=== PATIENT | male | born 1995 | race Caucasian/White ===

== ENCOUNTER → 2017-07-11 | Outpatient (REF) | payer OTHER ==
[2017-07-11 19:25] LABS: PLATELET COUNT, AUTOMATED 179 K/uL (150-450)
== END ==
LOC: ZZSTITCHES 19:07
PROVIDERS: ATTEND Physician Assistant
DX: R06.02 Shortness of breath (principal); R07.9 Chest pain, unspecified; R42 Dizziness and giddiness
CPT/HCPCS: 82040; 82247; 82310; 82374; 82435; 82565; 82947; 84075; 84132; 84155; 84295; 84450; 84460; 84520; 85025; 85379

== ENCOUNTER 2018-09-30 15:35 | Emergency (ER) | payer OTHER ==
--- NOTE | 2018-09-30 16:01 | ER Report ---
History and Physical Time Seen By MD: 16:00 Hx. of Stated Complaint: chest pain HPI/ROS CHIEF COMPLAINT: Chest pain HISTORY OF PRESENT ILLNESS: This is a 23-year-old male presents to the emergency department for chest pain. Patient states over the last 2-3 months he's had increased fatigue, with some increased chest congestion over the last couple of weeks, he states he can also feel his pulse in his neck when he lays back. This been having difficulty sleeping. He also states that today he had left anterior chest pain that caused concern decided come in for an evaluation. No fevers or chills. 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 Increased risk for PE. No nausea or vomiting. No diaphoresis. No visual changes, no rashes. History of asthma as a child. REVIEW OF SYSTEMS: Constitutional: No fever, no chills. Eyes: No discharge. ENT: No sore throat. Cardiovascular: As above. Respiratory: As above. Gastrointestinal: No abdominal pain, no vomiting. Genitourinary: No hematuria. Musculoskeletal: No back pain. Skin: No rashes. Neurological: No headache. Allergies: Coded Allergies: No Known Drug Allergies (Unverified , 09/30/18) Home Meds Active Scripts Albuterol Sulfate 90 Mcg/Act (PROAIR HFA 90 MCG/ACT) 8.5 Gm Hfa.aer.ad, 1-2 PUFF IH 3-4XD, #1 INHALER 0 Refills Prov:AIDEN BURRIS FORMING OPERATOR- 09/30/18 Azithromycin 250 Mg Tab (AZITHROMYCIN 250 MG TAB) 250 Mg Tablet, 1 TAB PO QDAY, #4 TAB 1 tab a day until gone. Prov:AIDEN BURRIS [facility]- 09/30/18 Past Medical/Surgical History The patient has a past medical and surgical history of asthma as a child. Reviewed Nurses Notes: Yes Constitutional Vital Sign - Last 24 Hours 09/30/18 09/30/18 09/30/18 09/30/18 15:41 16:00 16:55 16:55 Temp 98.0 Pulse 81 75 67 Resp 16 20 16 B/P (MAP) 142/89 131/72 (91) Pulse Ox 91 92 92 O2 Delivery Room Air Room Air 09/30/18 09/30/18 09/30/1819 17:00 17:08 17:30 18:00 Pulse 71 65 79 73 Resp 31 16 19 18 B/P (MAP) 138/68 (91) 135/68 (90) 117/80 (92) Pulse Ox 86 91 90 09/30/18 18:30 Pulse 67 Resp 16 B/P (MAP) 128/75 (92) Pulse Ox 91 Physical Exam General Appearance: The patient is alert, has no immediate need for airway protection and no signs of toxicity. Eyes: Pupils equal and round no pallor or injection. ENT, Mouth: Mucous membranes are moist. Respiratory: Diminished in bilateral bases with coarse lung sounds in the right lower base. No wheezing or any other adventitious lung sounds. Cardiovascular: Regular rate and rhythm, no murmurs, clicks or rubs. Gastrointestinal: Abdomen is soft and non tender, no masses, bowel sounds normal. Neurological: Alert and oriented 4. Moving all extremities. Following all commands. No focal neuro deficits. Skin: Warm and dry, no rashes. Musculoskeletal: Neck is supple non tender. Extremities are nontender, nonswollen and have full range of motion. DIFFERENTIAL DIAGNOSIS: After history and physical exam differential diagnosis was considered for chest pain including but not limited to myocardial ischemia, pericarditis pulmonary embolus, chest wall pain, pleural inflammation and pulmonary infectious causes. Medical Decision Making Data Points Result Diagram: 09/30/18 1550 09/30/18 1550 Laboratory Hematology Test 09/30/18 15:50 09/30/18 18:49 Red Blood Count 4.46 M/uL (4.00-5.60) Mean Corpuscular Volume 97.9 fL (80.0-96.0) Mean Corpuscular Hemoglobin 33.5 pg (26.0-33.0) Mean Corpuscular Hemoglobin Concent 34.2 g/dL (32.0-36.0) Red Cell Distribution Width 12.3 % (11.5-14.5) Mean Platelet Volume 9.7 fL (7.2-11.1) Neutrophils (%) (Auto) 62.9 % (39.4-72.5) Lymphocytes (%) (Auto) 25.4 % (17.6-49.6) Monocytes (%) (Auto) 9.2 % (4.1-12.4) Eosinophils (%) (Auto) 1.9 % (0.4-6.7) Basophils (%) (Auto) 0.6 % (0.3-1.4) Nucleated RBC Relative Count (auto) 0.1 /100WBC Neutrophils # (Auto) 3.3 K/uL (2.0-7.4) Lymphocytes # (Auto) 1.3 K/uL (1.3-3.6) Monocytes # (Auto) 0.5 K/uL (0.3-1.0) Eosinophils # (Auto) 0.1 K/uL (0.0-0.5) Basophils # (Auto) 0.0 K/uL (0.0-0.1) Nucleated RBC Absolute Count (auto) 0.00 K/uL D-Dimer Quantitative (PE/DVT) < 0.27 ug/ml (0-0.50) Sodium Level 139 mmol/L (137-145) Potassium Level 3.4 mmol/L (3.5-5.0) Chloride Level 103 mmol/L (98-107) Carbon Dioxide Level 28 mmol/L (22-30) Blood Urea Nitrogen 12 mg/dl (9-21) Creatinine 0.70 mg/dl (0.66-1.25) Glomerular Filtration Rate Calc > 60.0 Random Glucose 115 mg/dl (75-110) Calcium Level 9.4 mg/dl (8.4-10.2) Total Bilirubin 0.5 mg/dl (0.2-1.3) Aspartate Amino Transf (AST/SGOT) 34 U/L (0-35) Alanine Aminotransferase (ALT/SGPT) 25 U/L (0-56) Alkaline Phosphatase 51 U/L (0-126) Total Protein 7.3 g/dl (6.3-8.2) Albumin 4.6 g/dl (3.5-5.0) Troponin I < 0.012 ng/ml Chemistry Test 09/30/18 15:50 09/30/18 18:49 White Blood Count 5.2 k/uL (4.5-11.0) Red Blood Count 4.46 M/uL (4.00-5.60) Hemoglobin 14.9 g/dL (14.0-18.0) Hematocrit 43.7 % (42.0-52.0) Mean Corpuscular Volume 97.9 fL (80.0-96.0) Mean Corpuscular Hemoglobin 33.5 pg (26.0-33.0) Mean Corpuscular Hemoglobin Concent 34.2 g/dL (32.0-36.0) Red Cell Distribution Width 12.3 % (11.5-14.5) Platelet Count 184 K/uL (150-450) Mean Platelet Volume 9.7 fL (7.2-11.1) Neutrophils (%) (Auto) 62.9 % (39.4-72.5) Lymphocytes (%) (Auto) 25.4 % (17.6-49.6) Monocytes (%) (Auto) 9.2 % (4.1-12.4) Eosinophils (%) (Auto) 1.9 % (0.4-6.7) Basophils (%) (Auto) 0.6 % (0.3-1.4) Nucleated RBC Relative Count (auto) 0.1 /100WBC Neutrophils # (Auto) 3.3 K/uL (2.0-7.4) Lymphocytes # (Auto) 1.3 K/uL (1.3-3.6) Monocytes # (Auto) 0.5 K/uL (0.3-1.0) Eosinophils # (Auto) 0.1 K/uL (0.0-0.5) Basophils # (Auto) 0.0 K/uL (0.0-0.1) Nucleated RBC Absolute Count (auto) 0.00 K/uL D-Dimer Quantitative (PE/DVT) < 0.27 ug/ml (0-0.50) Glomerular Filtration Rate Calc > 60.0 Calcium Level 9.4 mg/dl (8.4-10.2) Total Bilirubin 0.5 mg/dl (0.2-1.3) Aspartate Amino Transf (AST/SGOT) 34 U/L (0-35) Alanine Aminotransferase (ALT/SGPT) 25 U/L (0-56) Alkaline Phosphatase 51 U/L (0-126) Total Protein 7.3 g/dl (6.3-8.2) Albumin 4.6 g/dl (3.5-5.0) Troponin I < 0.012 ng/ml Coagulation Test 09/30/18 15:50 D-Dimer Quantitative (PE/DVT) < 0.27 ug/ml EKG/Imaging EKG Interpretation 12 lead EKG: Time of EKG 1552. Rhythm: Normal sinus rhythm, ventricular rate 66 bpm. [place]: normal QRS: normal ST segments: No ST depression or elevation identified. No previous EKGs for comparison. Imaging Location: [facility] Patient: Zay Carrion : 1995 Visit/Account:[id number] Date of Sevice: 09/30/2018 Chest with lateral, 2 views. HISTORY: Sharp chest pain getting worse for one month. COMPARISON: None. The heart and mediastinum are unremarkable. Pulmonary vessels are unremarkable. The lungs are clear. The pleural surfaces are unremarkable. No pneumothorax. The bones are unremarkable. IMPRESSION: No evidence of acute cardiopulmonary disease. Report Dictated By: Eron Jaime MD at 09/30/2018 4:38 PM Report E-Signed By: Eron Jaime MD at 09/30/2018 4:40 PM WSN:[id number] ED Course/Re-evaluation Clinical Indication for ER IV: Hydration, IV Access ED Course The patient was admitted to room. A history and physical were obtained. Differential diagnoses were considered. IV was started. A CBC, CMP, troponin were obtained. Lab studies unremarkable, negative initial troponin, repeat troponin negative as well. D-dimer negative. I was concerned that the patient would have a PE, due to his job and frequency of traveling, although the d-dimer was negative, I did reevaluate and he is also negative on the perk rule, I reviewed this with the patient, we elected not to proceed with the CT. Chest x- ray is negative for any acute cardiac pulmonary process. As the patient's symptoms have been increasing in intensity and with the complaints today I did go ahead and treat the patient has an early onset pneumonia, started him on antibiotics, he was also given a prescription for albuterol inhaler. He was also given 30 mg IV Toradol, he states that the Toradol had a significant improvement in his pain. Patient had no other questions or concerns at this time and was discharged home. He was agreeable with this plan of care. Decision to Disposition Date: Sep 30, 2018 Decision to Disposition Time: 19:33 Depart Departure Latest Vital Signs Vital Signs Date Time Temp Pulse Resp B/P (MAP) Pulse Ox O2 Delivery O2 Flow Rate FiO2 4/14/19 18:30 67 16 128/75 (92) 91 09/30/18 16:55 Room Air 09/30/18 15:41 98.0 Impression: Primary Impression: Chest pain of unknown etiology Condition: Improved Disposition: HOME OR SELF-CARE New Scripts Albuterol Sulfate 90 Mcg/Act (PROAIR HFA 90 MCG/ACT) 8.5 Gm Hfa.aer.ad 1-2 PUFF IH 3-4XD, #1 INHALER 0 Refills Prov: AIDEN BURRIS-BC 09/30/18 Azithromycin 250 Mg Tab (AZITHROMYCIN 250 MG TAB) 250 Mg Tablet 1 TAB PO QDAY, #4 TAB 1 tab a day until gone. Prov: AIDEN BURRIS 09/30/18 Patient Instructions: Acute Bronchitis (ED), Bacterial Pneumonia (ED), Chest Pain (ED) Additional Instructions: Although the laboratory studies today, chest x-ray and EKG look okay, I'm going to start on antibiotics as I feel that you do have early onset pneumonia symptoms. Please take the antibiotics as prescribed. Use the inhaler as needed. Please follow-up with your primary care provider or establish with a new primary care provider within the next week for reevaluation. Get plenty of rest. Drink plenty of water. Return to the year for any concerns or worsening symptoms. AIEDN BURRIS FORMING OPERATOR-BC Sep 30, 2018 16:01
[2018-09-30] MEDS ORDERED: NS(*) 0.9% 1000 ML BAG 1,000 ML IV ONE (16:19)
[2018-09-30 16:27] LABS: PLATELET COUNT, AUTOMATED 184 K/uL (150-450)
--- NOTE | 2018-09-30 16:43 | RADIOLOGY IMAGING REPORT ---
FACILITY: [facility] PATIENT NAME: Zay Carrion : 1995 MR: [id number] V: [id number] EXAM DATE: ORDERING PHYSICIAN: AIDEN BURRIS TECHNOLOGIST: Location: [facility] Patient: Zay Carrion : 1995 Visit/Account:[id number] Date of Sevice: 09/30/2018 Chest with lateral, 2 views. HISTORY: Sharp chest pain getting worse for one month. COMPARISON: None. The heart and mediastinum are unremarkable. Pulmonary vessels are unremarkable. The lungs are clear . The pleural surfaces are unremarkable. No pneumothorax. The bones are unremarkable. IMPRESSION: No evidence of acute cardiopulmonary disease. Report Dictated By: Eron Jaime MD at 09/30/2018 4:38 PM Report E-Signed By: Eron Jaime MD at 09/30/2018 4:40 PM WSN:[id number]
[2018-09-30] MEDS ORDERED: ALBUTEROL/IPRATROPIUM 3 ML NEB NEB ONE (16:45)
[2018-09-30] MEDS ORDERED: ALBU8.5H IH (18:36)
[2018-09-30] MEDS ORDERED: AZIT-18 PO (18:36)
[2018-09-30] MEDS ORDERED: AZITHROMYCIN 250 MG TAB PO ONE (18:50)
[2018-09-30] MEDS ORDERED: KETOROLAC 30 MG/ML VIAL IVP ONE (18:50)
--- NOTE | 2018-09-30 19:11 | EKG ---
FACILITY: [facility] PATIENT NAME: MOO GORDON : [id number] MR: [id number] V: [id number] EXAM DATE: ORDERING PHYSICIAN: AIDEN BURRIS TECHNOLOGIST: MANUEL Test Reason : FATIGUE, HEAD ACHES Blood Pressure : / mmHG Vent. Rate : 066 BPM Atrial Rate : 066 BPM P-R Int : 182 ms QRS Dur : 102 ms QT Int : 366 ms P-R-T Axes : 039 096 041 degrees QTc Int : 383 ms Sinus arrhythmia Nonspecific ST findings No previous ECGs available Confirmed by LAYLA REDDY ([id number] on 09/30/2018 9:33:59 PM Referred By: OLGA Confirmed By:LAYLA REDDY
[2018-09-30 19:30] VITALS: BP 123/77
== END 2018-09-30 19:43 | disposition home or self-care (01) ==
LOC: ER 16:05
DX: R07.9 Chest pain, unspecified (principal); R06.9 Unspecified abnormalities of breathing
CPT/HCPCS: 36415; 71046; 84484; 85025; 85379; 93005; 94640; 96361; 96374; 99284; J1885; J7030; J7620; Q0144; 82040; 82247; 82310; 82374; 82435; 82565; 82947; 84075; 84132; 84155; 84295; 84450; 84460; 84520